=== PATIENT | female | born 1950 | race Caucasian/White ===

== ENCOUNTER 2020-07-05 10:52 | Inpatient (IN) ==
[2020-07-05] MEDS ORDERED: SODIUM CHLORIDE 0.9% 1,000 ML IV STA (11:42)
[2020-07-05 11:44] LABS: Basophils % 0.1 % (0.0-0.8); Hematocrit 27.7 VOL% (35.7-47.0); Hemoglobin 8.6 GM/DL (12.0-16.0); Immature Granulocytes % 1.6 %; Immature Granulocytes Absolute 0.65 #; Lymphocytes # 0.3 10*3/uL (1.4-4.0); Lymphocytes % 0.8 % (21.3-54.2); Mean Corpuscular Volume 94.9 FL (87-102); Mean Platelet Volume 11.5 FL (9.6-12.0); Neutrophils % 95.5 % (38.7-73.9); Platelet Count 256 T/CUMM (130-400); Red Blood Count 2.92 MC/CUMM (3.8-5.5); Red Cell Distribution Width 16.8 % (9.3-17.3); White Blood Count 39.7 T/CUMM (4-12)
[2020-07-05 12:02] LABS: Albumin 1.5 G/DL (3.4-5.0); Bilirubin,Total 0.5 MG/DL (0.2-1.0); Osmolality,Calculated 293.4 MOS/KG (273-304); Total Protein 6.9 G/DL (6.4-8.3)
[2020-07-05 12:04] LABS: INR 1.2; PT Patient Result 12.7 SECS (9.8-11.9); Partial Thromboplastin Time 26.9 SECS (23.9-33.8)
[2020-07-05 12:34] LABS: Band Neutrophils 2 % (0-10); Lymphocytes 1 % (20-55); Polychromasia Slight; Segmented Neutrophils 94 % (50-85); Total Cells Counted 100
[2020-07-05 12:35] LABS: Hypochromasia 1+; Microcytosis 1+; Platelet Estimate Normal; Target Cells Slight
[2020-07-05 13:22] LABS: Apearance,Urine CLEAR (Clear); Bilirubin,Urine Negative (Negative); Blood, Urine Negative (Negative); Glucose,Urine (UA) Negative (Negative); Ketones,Urine Negative (Negative); Mucus,Urine Occasional /LPF (Occasional); Nitrite,Urine Negative (Negative); Protein,Urine Negative; RBC,Urine 1 /HPF (0-4); Urine Color Yellow (Yellow); Urine Specific Gravity 1.012 (1.001-1.035); Urine Urobilinogen < 2.0 EU/DL (0.2-1.0); WBC,Urine <1 /HPF (0-6)
[2020-07-05] MEDS ORDERED: GLUCAGON 1 MG VIAL IM PRN (15:54)
[2020-07-05] MEDS ORDERED: DOCUSATE SODIUM 100 MG CAPSULE PO PRN (15:54)
[2020-07-05] MEDS ORDERED: DEXTROSE 50% 25 GM/50 ML VIAL IV PRN (15:54)
[2020-07-05] MEDS ORDERED: guaiFENesin/DM ER 600-30 MG TABLET PO PRN (15:54)
[2020-07-05] MEDS ORDERED: ACETAMINOPHEN 325 MG TABLET PO PRN (15:54)
[2020-07-05] MEDS ORDERED: ONDANSETRON 4 MG/2 ML VIAL IV PRN (15:54)
[2020-07-05] MEDS: SODIUM CHLORIDE 0.9% 1,000 ML IV SCH (16:50)
[2020-07-05] MEDS: LEVOFLOXACIN INJ 750 MG in PREMIX 1 EACH IV SCH (16:50)
[2020-07-06] MEDS: PIPERACILLIN/TAZOBACTAM 3,375 MG in SODIUM CHLORIDE 0.9% 100 ML IV SCH ×4 (02:41→17:47)
[2020-07-06] MEDS: SODIUM CHLORIDE 0.9% 1,000 ML IV SCH ×2 (02:52→10:35)
[2020-07-06 05:35] LABS: Basophils % 0.1 % (0.0-0.8); Eosinophils % 0.1 % (0.00-10.9); Hematocrit 21.4 VOL% (35.7-47.0); Hemoglobin 6.9 GM/DL (12.0-16.0); Immature Granulocytes % 1.1 %; Immature Granulocytes Absolute 0.22 #; Lymphocytes # 0.6 10*3/uL (1.4-4.0); Lymphocytes % 2.8 % (21.3-54.2); Mean Corpuscular HGB Conc 32.2 GM/DL (32-36); Mean Corpuscular Volume 91.8 FL (87-102); Mean Platelet Volume 11.4 FL (9.6-12.0); Monocytes % 2.3 % (1.7-12.7); Neutrophils % 93.6 % (38.7-73.9); Platelet Count 234 T/CUMM (130-400); Red Blood Count 2.33 MC/CUMM (3.8-5.5); Red Cell Distribution Width 16.7 % (9.3-17.3); White Blood Count 20.2 T/CUMM (4-12)
[2020-07-06 05:57] LABS: Hypochromasia 2+; Lymphocytes 2 % (20-55); Microcytosis 1+; Platelet Estimate Adequate; Segmented Neutrophils 95 % (50-85); Total Cells Counted 100
[2020-07-06 06:06] LABS: Calcium 8.8 MG/DL (8.5-10.1); Osmolality,Calculated 287.3 MOS/KG (273-304); Risk Ratio 2.88; Thyroid Stimulating Hormone 5.07 uIU/ml (0.358-3.74)
[2020-07-06] MEDS ORDERED: SODIUM CHLORIDE 0.9% 1,000 ML IV PRN (07:40)
[2020-07-06] MEDS: PANTOPRAZOLE 40 MG TABLET PO SCH (09:08)
[2020-07-06] MEDS ORDERED: POTASSIUM CHLORIDE RIDER 10 MEQ in PREMIX 1 EACH IV PRN (10:06)
[2020-07-06] MEDS ORDERED: ALBUTEROL/IPRATROPIUM 3 ML NEB RESP TX PRN (10:34)
[2020-07-06 13:20] LABS: Ferritin 870.3 ng/ml (8-252)
[2020-07-06] MEDS: ALBUTEROL/IPRATROPIUM 3 ML NEB RESP TX SCH ×2 (13:35→19:38)
[2020-07-06 17:34] LABS: Basophils # 0.1 10*3/uL (0.0-0.2); Basophils % 0.3 % (0.0-0.8); Hematocrit 33.6 VOL% (35.7-47.0); Immature Granulocytes % 1.2 %; Immature Granulocytes Absolute 0.27 #; Lymphocytes # 0.5 10*3/uL (1.4-4.0); Lymphocytes % 2.3 % (21.3-54.2); Mean Corpuscular HGB Conc 32.1 GM/DL (32-36); Mean Corpuscular Volume 90.8 FL (87-102); Mean Platelet Volume 11.6 FL (9.6-12.0); Monocytes % 2.3 % (1.7-12.7); Neutrophils % 93.9 % (38.7-73.9); Platelet Count 192 T/CUMM (130-400); Red Cell Distribution Width 17.2 % (9.3-17.3)
[2020-07-06 17:36] LABS: Hemoglobin 10.8 GM/DL (12.0-16.0)
[2020-07-06 18:03] LABS: Folate 21.6 NG/ML (5.4-24.0); Vitamin B12 1642 PG/ML (211-911)
[2020-07-06 18:41] LABS: Sedimentation Rate-Westergren 73 MM/HR (0-30)
[2020-07-06] MEDS: DORNASE ALFA 2.5 MG/2.5 ML VIAL RESP TX SCH (19:38)
[2020-07-06 21:08] LABS: Band Neutrophils 2 % (0-10); Lymphocytes 2 % (20-55); Platelet Estimate Normal; Segmented Neutrophils 94 % (50-85); Total Cells Counted 100
[2020-07-06] MEDS: POTASSIUM CHLORIDE 20 MEQ TABLET PO PRN (21:40)
[2020-07-07] MEDS: ALBUTEROL/IPRATROPIUM 3 ML NEB RESP TX SCH ×4 (00:22→19:45)
[2020-07-07] MEDS: PIPERACILLIN/TAZOBACTAM 3,375 MG in SODIUM CHLORIDE 0.9% 100 ML IV SCH ×3 (01:50→17:23)
[2020-07-07] MEDS: POTASSIUM CHLORIDE 20 MEQ TABLET PO PRN ×2 (01:51→03:55)
[2020-07-07 06:17] LABS: Basophils % 0.2 % (0.0-0.8); Eosinophils % 0.1 % (0.00-10.9); Hematocrit 32.9 VOL% (35.7-47.0); Hemoglobin 10.6 GM/DL (12.0-16.0); Immature Granulocytes % 1.1 %; Lymphocytes # 0.6 10*3/uL (1.4-4.0); Lymphocytes % 3.3 % (21.3-54.2); Mean Corpuscular HGB Conc 32.2 GM/DL (32-36); Mean Corpuscular Volume 89.6 FL (87-102); Mean Platelet Volume 11.2 FL (9.6-12.0); Monocytes % 2.7 % (1.7-12.7); Neutrophils % 92.6 % (38.7-73.9); Platelet Count 198 T/CUMM (130-400); Red Blood Count 3.67 MC/CUMM (3.8-5.5); Red Cell Distribution Width 17.5 % (9.3-17.3); White Blood Count 17.9 T/CUMM (4-12)
[2020-07-07 06:42] LABS: Calcium 8.3 MG/DL (8.5-10.1); Osmolality,Calculated 287.1 MOS/KG (273-304)
[2020-07-07 06:46] LABS: Hypochromasia 1+; Lymphocytes 2 % (20-55); Microcytosis Slight; Ovalocytes Slight; Platelet Estimate Adequate; Segmented Neutrophils 96 % (50-85); Total Cells Counted 100
[2020-07-07 06:48] LABS: % Iron Saturation 12.3 % (18-50); Ferritin 1013.9 ng/ml (8-252)
[2020-07-07] MEDS ORDERED: MAGNESIUM SULF RIDER 2 GM in PREMIX 1 EACH IV ONE (07:37)
[2020-07-07] MEDS: SODIUM CHLORIDE 0.9% 1,000 ML IV SCH ×4 (08:03→21:40)
[2020-07-07] MEDS: FERROUS SULFATE 325 MG TABLET PO SCH ×3 (09:17→21:11)
[2020-07-07] MEDS: PANTOPRAZOLE 40 MG TABLET PO SCH (09:17)
[2020-07-07 10:09] LABS: Hemoglobin A1 (Alkaline) 97.2 % (96.5-98.5); Hemoglobin A2 (Alkaline) 2.8 % (1.5-3.5)
[2020-07-07] MEDS: DORNASE ALFA 2.5 MG/2.5 ML VIAL RESP TX SCH ×2 (11:00→19:53)
[2020-07-07] MEDS: LEVOFLOXACIN INJ 750 MG in PREMIX 1 EACH IV SCH (15:59)
[2020-07-08] MEDS: PIPERACILLIN/TAZOBACTAM 3,375 MG in SODIUM CHLORIDE 0.9% 100 ML IV SCH ×3 (00:20→15:39)
[2020-07-08] MEDS: ALBUTEROL/IPRATROPIUM 3 ML NEB RESP TX SCH ×4 (01:15→19:25)
[2020-07-08 06:44] LABS: Basophils % 0.1 % (0.0-0.8); Calcium 8.4 MG/DL (8.5-10.1); Eosinophils % 0.1 % (0.00-10.9); Hemoglobin 9.7 GM/DL (12.0-16.0); Immature Granulocytes Absolute 0.21 #; Lymphocytes # 0.5 10*3/uL (1.4-4.0); Lymphocytes % 2.6 % (21.3-54.2); Mean Corpuscular HGB Conc 32.3 GM/DL (32-36); Mean Platelet Volume 11.4 FL (9.6-12.0); Monocytes % 2.4 % (1.7-12.7); Neutrophils % 93.8 % (38.7-73.9); Osmolality,Calculated 278.5 MOS/KG (273-304); Platelet Count 185 T/CUMM (130-400); Red Blood Count 3.37 MC/CUMM (3.8-5.5); Red Cell Distribution Width 17.2 % (9.3-17.3); White Blood Count 20.1 T/CUMM (4-12)
[2020-07-08] MEDS: DORNASE ALFA 2.5 MG/2.5 ML VIAL RESP TX SCH ×3 (07:52→19:33)
[2020-07-08] MEDS: PANTOPRAZOLE 40 MG TABLET PO SCH (09:20)
[2020-07-08] MEDS: POTASSIUM CHLORIDE 20 MEQ TABLET PO SCH (09:20)
[2020-07-08] MEDS: FERROUS SULFATE 325 MG TABLET PO SCH ×3 (09:20→20:23)
[2020-07-08] MEDS: methylPREDNISolone SOD SUC 40 MG/1 ML VIAL IV SCH ×2 (09:26→17:22)
[2020-07-08 11:39] LABS: Hypochromasia 1+; Lymphocytes 4 % (20-55); Platelet Estimate Adequate; Polychromasia Slight; Segmented Neutrophils 95 % (50-85); Total Cells Counted 100
[2020-07-08] MEDS: SODIUM CHLORIDE 0.9% 1,000 ML IV SCH (12:35)
[2020-07-08] MEDS: POTASSIUM CHLORIDE 20 MEQ TABLET PO PRN ×4 (15:35→23:16)
[2020-07-09] MEDS: PIPERACILLIN/TAZOBACTAM 3,375 MG in SODIUM CHLORIDE 0.9% 100 ML IV SCH ×3 (00:13→17:21)
[2020-07-09] MEDS: ALBUTEROL/IPRATROPIUM 3 ML NEB RESP TX SCH ×4 (01:44→18:54)
[2020-07-09] MEDS: methylPREDNISolone SOD SUC 40 MG/1 ML VIAL IV SCH ×3 (01:52→17:21)
[2020-07-09] MEDS: SODIUM CHLORIDE 0.9% 1,000 ML IV SCH (04:15)
[2020-07-09] MEDS: DORNASE ALFA 2.5 MG/2.5 ML VIAL RESP TX SCH ×2 (07:07→18:54)
[2020-07-09 07:54] LABS: Basophils % 0.2 % (0.0-0.8); Hematocrit 32.3 VOL% (35.7-47.0); Hemoglobin 10.3 GM/DL (12.0-16.0); Immature Granulocytes % 0.9 %; Immature Granulocytes Absolute 0.11 #; Lymphocytes # 0.4 10*3/uL (1.4-4.0); Lymphocytes % 2.9 % (21.3-54.2); Mean Corpuscular HGB Conc 31.9 GM/DL (32-36); Mean Corpuscular Volume 90.2 FL (87-102); Mean Platelet Volume 10.7 FL (9.6-12.0); Monocytes % 0.9 % (1.7-12.7); Neutrophils % 95.1 % (38.7-73.9); Platelet Count 193 T/CUMM (130-400); Red Blood Count 3.58 MC/CUMM (3.8-5.5); Red Cell Distribution Width 17.2 % (9.3-17.3); White Blood Count 12.9 T/CUMM (4-12)
[2020-07-09] MEDS: POTASSIUM CHLORIDE 20 MEQ TABLET PO SCH (08:06)
[2020-07-09] MEDS: FERROUS SULFATE 325 MG TABLET PO SCH ×3 (08:06→20:25)
[2020-07-09] MEDS: PANTOPRAZOLE 40 MG TABLET PO SCH (08:07)
[2020-07-09 08:08] LABS: Calcium 8.6 MG/DL (8.5-10.1)
[2020-07-09] MEDS ORDERED: MAGNESIUM SULF RIDER 2 GM in PREMIX 1 EACH IV PRN (09:08)
[2020-07-09] MEDS ORDERED: MAGNESIUM SULF RIDER 4 GM in PREMIX 1 EACH IV PRN (09:08)
[2020-07-09 10:01] LABS: Polychromasia Slight; Segmented Neutrophils 99 % (50-85); Total Cells Counted 100
[2020-07-09 10:02] LABS: Hypochromasia 1+; Platelet Estimate Normal
[2020-07-09] MEDS: CYPROHEPTADINE 4 MG TABLET PO SCH ×2 (14:13→20:25)
[2020-07-09] MEDS: LEVOFLOXACIN INJ 750 MG in PREMIX 1 EACH IV SCH (15:44)
[2020-07-10] MEDS: ALBUTEROL/IPRATROPIUM 3 ML NEB RESP TX SCH ×4 (00:10→19:56)
[2020-07-10] MEDS: PIPERACILLIN/TAZOBACTAM 3,375 MG in SODIUM CHLORIDE 0.9% 100 ML IV SCH ×3 (00:25→16:45)
[2020-07-10] MEDS: methylPREDNISolone SOD SUC 40 MG/1 ML VIAL IV SCH ×3 (01:47→16:45)
[2020-07-10 04:48] LABS: Basophils % 0.2 % (0.0-0.8); Eosinophils % 0.1 % (0.00-10.9); Hemoglobin 10.3 GM/DL (12.0-16.0); Immature Granulocytes % 0.8 %; Immature Granulocytes Absolute 0.15 #; Lymphocytes # 0.4 10*3/uL (1.4-4.0); Lymphocytes % 2.1 % (21.3-54.2); Mean Corpuscular HGB Conc 31.2 GM/DL (32-36); Mean Corpuscular Volume 91.2 FL (87-102); Mean Platelet Volume 11.1 FL (9.6-12.0); Monocytes % 2.6 % (1.7-12.7); Neutrophils % 94.2 % (38.7-73.9); Platelet Count 187 T/CUMM (130-400); Red Blood Count 3.62 MC/CUMM (3.8-5.5); Red Cell Distribution Width 17.1 % (9.3-17.3)
[2020-07-10 05:20] LABS: Calcium 8.8 MG/DL (8.5-10.1); Osmolality,Calculated 276.1 MOS/KG (273-304)
[2020-07-10 06:01] LABS: Hypochromasia 1+; Lymphocytes 2 % (20-55); Segmented Neutrophils 97 % (50-85); Total Cells Counted 100
[2020-07-10 06:02] LABS: Anisocytosis 1+; Microcytosis 1+
[2020-07-10] MEDS: DORNASE ALFA 2.5 MG/2.5 ML VIAL RESP TX SCH ×2 (07:17→19:56)
[2020-07-10] MEDS: PANTOPRAZOLE 40 MG TABLET PO SCH (09:36)
[2020-07-10] MEDS: CYPROHEPTADINE 4 MG TABLET PO SCH ×2 (09:36→20:44)
[2020-07-10] MEDS: FERROUS SULFATE 325 MG TABLET PO SCH ×3 (09:36→20:44)
[2020-07-10] MEDS: POTASSIUM CHLORIDE 20 MEQ TABLET PO SCH (09:36)
[2020-07-11] MEDS: PIPERACILLIN/TAZOBACTAM 3,375 MG in SODIUM CHLORIDE 0.9% 100 ML IV SCH ×3 (01:03→17:15)
[2020-07-11] MEDS: methylPREDNISolone SOD SUC 40 MG/1 ML VIAL IV SCH ×3 (01:12→17:33)
[2020-07-11] MEDS: ALBUTEROL/IPRATROPIUM 3 ML NEB RESP TX SCH ×4 (02:12→19:47)
[2020-07-11 05:44] LABS: Basophils % 0.1 % (0.0-0.8); Hemoglobin 11.6 GM/DL (12.0-16.0); Immature Granulocytes % 0.6 %; Immature Granulocytes Absolute 0.06 #; Lymphocytes # 0.3 10*3/uL (1.4-4.0); Lymphocytes % 3.1 % (21.3-54.2); Mean Corpuscular HGB Conc 31.4 GM/DL (32-36); Mean Corpuscular Volume 91.4 FL (87-102); Monocytes % 2.2 % (1.7-12.7); Platelet Count 211 T/CUMM (130-400); Red Blood Count 4.05 MC/CUMM (3.8-5.5); Red Cell Distribution Width 16.9 % (9.3-17.3); White Blood Count 10.5 T/CUMM (4-12)
[2020-07-11 05:58] LABS: PT Patient Result 11.2 SECS (9.8-11.9)
[2020-07-11 06:13] LABS: Calcium 8.4 MG/DL (8.5-10.1); Lymphocytes 1 % (20-55); Osmolality,Calculated 270.4 MOS/KG (273-304); Platelet Estimate Adequate; Segmented Neutrophils 95 % (50-85); Total Cells Counted 100
[2020-07-11 06:14] LABS: Hypochromasia 1+; Microcytosis 1+
[2020-07-11] MEDS: DORNASE ALFA 2.5 MG/2.5 ML VIAL RESP TX SCH ×2 (07:13→20:28)
[2020-07-11] MEDS ORDERED: LACTATED RINGERS 1,000 ML IV SCH (08:04)
[2020-07-11] MEDS: FERROUS SULFATE 325 MG TABLET PO SCH ×3 (08:55→21:09)
[2020-07-11] MEDS: POTASSIUM CHLORIDE 20 MEQ TABLET PO SCH (08:55)
[2020-07-11] MEDS: PANTOPRAZOLE 40 MG TABLET PO SCH (08:55)
[2020-07-11] MEDS: CYPROHEPTADINE 4 MG TABLET PO SCH ×2 (08:55→21:09)
[2020-07-11] MEDS ORDERED: propofoL 200 MG/20 ML VIAL IV ONE (09:00)
[2020-07-11] MEDS ORDERED: LIDOCAINE 2% 5 ML VIAL ONE (09:00)
[2020-07-11] MEDS ORDERED: BENZOCAINE/MENTHOL LOZENGE 18/BOX PO PRN (11:13)
[2020-07-11] MEDS: THIAMINE 100 MG TABLET PEG SCH (15:10)
[2020-07-11] MEDS: LEVOFLOXACIN INJ 750 MG in PREMIX 1 EACH IV SCH (17:09)
[2020-07-12] MEDS: ALBUTEROL/IPRATROPIUM 3 ML NEB RESP TX SCH ×3 (00:07→12:26)
[2020-07-12] MEDS: methylPREDNISolone SOD SUC 40 MG/1 ML VIAL IV SCH ×2 (00:12→09:39)
[2020-07-12] MEDS: PIPERACILLIN/TAZOBACTAM 3,375 MG in SODIUM CHLORIDE 0.9% 100 ML IV SCH ×2 (00:16→08:01)
[2020-07-12 06:02] LABS: Calcium 8.4 MG/DL (8.5-10.1); Osmolality,Calculated 270.4 MOS/KG (273-304); Prealbumin 16.9 MG/DL (20-40)
[2020-07-12] MEDS: DORNASE ALFA 2.5 MG/2.5 ML VIAL RESP TX SCH (07:59)
[2020-07-12] MEDS: THIAMINE 100 MG TABLET PEG SCH (09:38)
[2020-07-12] MEDS: FERROUS SULFATE 325 MG TABLET PO SCH (09:38)
[2020-07-12] MEDS: POTASSIUM CHLORIDE 20 MEQ TABLET PO SCH (09:39)
[2020-07-12] MEDS: PANTOPRAZOLE 40 MG TABLET PO SCH (09:39)
[2020-07-12] MEDS: CYPROHEPTADINE 4 MG TABLET PO SCH (09:59)
[2020-07-12 11:51] VITALS: BP 101/61
== END 2020-07-12 16:11 | disposition home health service (06) | DRG 177 ==
LOC: EDBD → EDSEX → EDUNIT# → N.EDINP 10:52 → N.ED 10:52 → N.EDINP 18:50 → N.3E 19:17 → SUATTDRO 07-06 07:41
PROVIDERS: ADMIT Family Medicine; ATTEND Hospitalist
PROC: EGDWPEG (ICD-10-PCS; 2020-07-11 07:35)